=== PATIENT | male | born 1990 | race American Indian/Alaskan Native ===

== ENCOUNTER 2021-02-02 06:14 | Emergency (ER) | payer SELFPAY ==
[2021-02-02 06:21] VITALS: BP 127/83
[2021-02-02 08:10] LABS: Basophils % (Auto) 0.4 % (0.0-1.8); Eosinophils # (Auto) 0.2 K/mm3 (0.0-0.4); Eosinophils % (Auto) 2.4 % (0.0-4.3); Hemoglobin 14.5 gm/dl (11.8-15.2); Lymphocytes # (Auto) 1.9 K/mm3 (1.2-5.4); Lymphocytes % (Auto) 27.9 % (13.4-35.0); Mean Corpuscular HGB Conc 33 % (32-34); Mean Corpuscular Volume 87 fl (84-94); Monocytes # (Auto) 0.6 K/mm3 (0.0-0.8); Monocytes % (Auto) 8.6 % (0.0-7.3); Platelet Count 254 K/mm3 (140-440); Red Blood Count 5.04 M/mm3 (3.65-5.03)
[2021-02-02 08:33] LABS: BUN/Creatinine Ratio 21; Blood Urea Nitrogen 19 mg/dL (9-20); Calcium 9.4 mg/dL (8.4-10.2); Hemolysis Index 43
--- NOTE | 2021-02-02 08:43 | Emergency Department Report ---
ED Back Pain/Injury HPI - General Chief Complaint: Chest Pain Stated Complaint: CHEST PAIN/MOSTLY LT SIDE Time Seen by Provider: 02/02/21 08:15 Source: patient Limitations: No Limitations - History of Present Illness Initial Comments: Patient is a 30-year-old -[place] male that comes to the emergency room complaining of left and right sided chest pain for over 1 month. He states that it started when he overstretched 1 night he has had persistent pain since. The pain is worse with movement. Patient does lift a lot for work with seems to exaggerate the pain. Patient is otherwise healthy and in no acute distress. He is requesting a work note. The work-up as ordered by the overnight staff is noted. -: Gradual, days(s) Similar Symptoms Previously: Yes Place: home, work Radiation: none Severity: mild Quality: aching Consistency: intermittent Improves With: immobilization Worsens With: movement Context: while lifting, turning/twisting, bending Associated Symptoms: denies other symptoms - Related Data Previous Rx's Medication Instructions Recorded Last Taken Type Cyclobenzaprine [Flexeril] 10 mg PO TID PRN #10 tablet 02/02/21 Unknown Rx Ibuprofen [Motrin] 800 mg PO Q8HR PRN #30 tablet 02/02/21 Unknown Rx predniSONE [Deltasone] 20 mg PO DAILY #5 tablet 02/02/21 Unknown Rx Allergies Allergy/AdvReac Type Severity Reaction Status Date / Time shellfish derived Allergy Swelling Verified 02/02/21 06:18 ED Review of Systems ROS: Stated complaint: CHEST PAIN/MOSTLY LT SIDE Other details as noted in HPI Comment: All other systems reviewed and negative ED Past Medical Hx - Past Medical History Previous Medical History?: No - Surgical History Past Surgical History?: Yes Additional Surgical History: nose - Family History Family history: no significant - Social History Smoking Status: Former Smoker Substance Use Type: None - Medications Home Medications: Home Medications Medication Instructions Recorded Confirmed Last Taken Type Cyclobenzaprine [Flexeril] 10 mg PO TID PRN #10 tablet 02/02/21 Unknown Rx Ibuprofen [Motrin] 800 mg PO Q8HR PRN #30 tablet 02/02/21 Unknown Rx predniSONE [Deltasone] 20 mg PO DAILY #5 tablet 02/02/21 Unknown Rx ED Physical Exam - General Limitations: No Limitations General appearance: alert, in no apparent distress - Head Head exam: Present: atraumatic, normocephalic - Eye Eye exam: Present: normal appearance - ENT ENT exam: Present: mucous membranes moist - Neck Neck exam: Present: normal inspection - Respiratory Respiratory exam: Present: normal lung sounds bilaterally. Absent: respiratory distress - Cardiovascular Cardiovascular Exam: Present: regular rate, normal rhythm. Absent: systolic murmur, diastolic murmur, rubs, gallop - GI/Abdominal GI/Abdominal exam: Present: soft, normal bowel sounds - Rectal Rectal exam: Present: deferred - Extremities Exam Extremities exam: Present: normal inspection - Back Exam Back exam: Present: normal inspection - Neurological Exam Neurological exam: Present: alert, oriented X3 - Psychiatric Psychiatric exam: Present: normal affect, normal mood - Skin Skin exam: Present: warm, dry, intact, normal color. Absent: rash ED Course Vital Signs 02/02/21 06:18 Temperature 97.8 F Pulse Rate 94 H Respiratory 16 Rate Blood Pressure 127/83 O2 Sat by Pulse 97 Oximetry ED Medical Decision Making - Lab Data Result diagrams: 02/02/21 07:18 02/02/21 07:18 - EKG Data -: EKG Interpreted by [place] EKG shows normal: sinus rhythm Rate: normal - EKG Data When compared to previous EKG there are: no significant change Interpretation: no acute changes - Medical Decision Making Lab Results 02/02/21 02/02/21 Range/Units 07:18 07:18 WBC 6.8 (4.5-11.0) K/mm3 RBC 5.04 H (3.65-5.03) M/mm3 Hgb 14.5 (11.8-15.2) gm/dl Hct 44.0 (35.5-45.6) % MCV 87 (84-94) fl MCH 29 (28-32) pg MCHC 33 (32-34) % RDW 14.0 (13.2-15.2) % Plt Count 254 (140-440) K/mm3 Lymph % (Auto) 27.9 (13.4-35.0) % [place] % (Auto) 8.6 H (0.0-7.3) % Eos % (Auto) 2.4 (0.0-4.3) % Baso % (Auto) 0.4 (0.0-1.8) % Lymph # (Auto) 1.9 (1.2-5.4) K/mm3 [place] # (Auto) 0.6 (0.0-0.8) K/mm3 Eos # (Auto) 0.2 (0.0-0.4) K/mm3 Baso # (Auto) 0.0 (0.0-0.1) K/mm3 Seg Neutrophils % 60.7 (40.0-70.0) % Seg Neutrophils # 4.1 (1.8-7.7) K/mm3 Sodium 140 (137-145) mmol/L Potassium 4.5 (3.6-5.0) mmol/L Chloride 103.8 (98-107) mmol/L Carbon Dioxide 25 (22-30) mmol/L Anion Gap 16 mmol/L BUN 19 (9-20) mg/dL Creatinine 0.9 (0.8-1.3) mg/dL Estimated GFR > 60 ml/min BUN/Creatinine Ratio 21 % Glucose 76 (75-100) mg/dL Calcium 9.4 (8.4-10.2) mg/dL Vital Signs 02/02/21 06:18 Temperature 97.8 F Pulse Rate 94 H Respiratory 16 Rate Blood Pressure 127/83 O2 Sat by Pulse 97 Oximetry Twelve-lead EKG noted to be normal. Labs normal. Vital signs normal. Able to replicate the pain with movement. Patient discharged home with discharge plan of care including Flexeril for muscle spasm. Patient verbalizes understanding of discharge plan of care inc luding follow-up. - Differential Diagnosis musculoskeletal pain Critical care attestation.: If time is entered above; I have spent that time in minutes in the direct care of this critically ill patient, excluding procedure time. ED Disposition Clinical Impression: Musculoskeletal pain Disposition: DC-01 TO HOME OR SELFCARE Is pt being admited?: No Does the pt Need Aspirin: No Condition: Stable Instructions: Acute Back Pain, Adult Additional Instructions: MEDS ORDERED TODAY FOLLOW UP WITH PCP NEXT WEEK TO BE SURE YOU ARE GETTING BETTER WARM COMPRESSES Prescriptions: predniSONE [Deltasone] 20 mg PO DAILY #5 tablet Cyclobenzaprine [Flexeril] 10 mg PO TID PRN #10 tablet PRN Reason: Muscle Spasm Ibuprofen [Motrin] 800 mg PO Q8HR PRN #30 tablet PRN Reason: Pain, Moderate (4-6) Referrals: JEFE WOODARD MD [Staff Physician] - 3-5 Days Forms: Work/School Release Form(ED) Time of Disposition: 08:42
--- NOTE | 2021-02-03 17:39 | Electrocardiograph Report ---
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
== END 2021-02-02 08:52 | disposition home or self-care (01) ==
LOC: ED 06:14
DX: R07.89 Other chest pain (principal); M79.10 Myalgia, unspecified site; Z79.899 Other long term (current) drug therapy
CPT/HCPCS: 36415; 80048; 85025; 93005; 99283

== ENCOUNTER 2021-03-02 08:25 | Emergency (ER) | payer SELFPAY ==
[2021-03-02 08:37] VITALS: BP 120/67
[2021-03-02] MEDS ORDERED: CYCLOBENZAPRINE 10 MG TAB PO ONE (09:04)
[2021-03-02] MEDS ORDERED: methylPREDNISolone ACETATE 80 MG/1 ML INJ IM ONE (09:04)
--- NOTE | 2021-03-02 09:04 | Emergency Department Report ---
ED Back Pain/Injury HPI - General Chief Complaint: Back Pain/Injury Stated Complaint: BACK PAIN Time Seen by Provider: 03/02/21 09:02 Source: patient Limitations: No Limitations - History of Present Illness Initial Comments: 21 yo AA male comes to ER with lumbar back pain p throwing metal at work. No fall or trauma. No urinary/bowel complaints. Ambulatory with no difficulty. Pain is constant achy feeling which is worse with movement Ambulatory to ER MD Complaint: back pain -: Gradual, days(s) Similar Symptoms Previously: Yes Place: work Radiation: none Severity: mild Consistency: constant Improves With: immobilization Worsens With: movement Context: while lifting Associated Symptoms: denies other symptoms - Related Data Previous Rx's Medication Instructions Recorded Last Taken Type Cyclobenzaprine [Flexeril] 10 mg PO TID PRN #10 tablet 03/02/21 Unknown Rx Ibuprofen [Motrin] 800 mg PO Q8HR PRN #30 tablet 03/02/21 Unknown Rx predniSONE [Deltasone] 20 mg PO DAILY #5 tablet 03/02/21 Unknown Rx Allergies Allergy/AdvReac Type Severity Reaction Status Date / Time shellfish derived Allergy Swelling Verified 03/02/21 08:56 ED Review of Systems ROS: Stated complaint: BACK PAIN Other details as noted in HPI Comment: All other systems reviewed and negative ED Past Medical Hx - Past Medical History Previous Medical History?: Yes Hx Asthma: Yes - Surgical History Past Surgical History?: Yes Additional Surgical History: nose - Family History Family history: no significant - Social History Smoking Status: Never Smoker Substance Use Type: None - Medications Home Medications: Home Medications Medication Instructions Recorded Confirmed Last Taken Type Cyclobenzaprine [Flexeril] 10 mg PO TID PRN #10 tablet 03/02/21 Unknown Rx Ibuprofen [Motrin] 800 mg PO Q8HR PRN #30 tablet 03/02/21 Unknown Rx predniSONE [Deltasone] 20 mg PO DAILY #5 tablet 03/02/21 Unknown Rx ED Physical Exam - General Limitations: No Limitations General appearance: alert, in no apparent distress - Head Head exam: Present: atraumatic, normocephalic - Eye Eye exam: Present: normal appearance - ENT ENT exam: Present: mucous membranes moist - Neck Neck exam: Present: normal inspection - Respiratory Respiratory exam: Present: normal lung sounds bilaterally. Absent: respiratory distress - Cardiovascular Cardiovascular Exam: Present: regular rate, normal rhythm. Absent: systolic murmur, diastolic murmur, rubs, gallop - GI/Abdominal GI/Abdominal exam: Present: soft, normal bowel sounds - Rectal Rectal exam: Present: deferred - Extremities Exam Extremities exam: Present: normal inspection - Back Exam Back exam: Present: normal inspection, muscle spasm - Expanded Back Exam Expanded Back exam: Present: intact bulbocavernosus reflex, normal rectal tone. Absent: saddle anesthesia, decreased rectal tone Back exam: Positive Straight Leg Raise: Right - Neurological Exam Neurological exam: Present: alert, oriented X3 - Psychiatric Psychiatric exam: Present: normal affect, normal mood - Skin Skin exam: Present: warm, dry, intact, normal color. Absent: rash ED Course Vital Signs 03/02/21 08:36 Temperature 98.8 F Pulse Rate 89 Respiratory 18 Rate Blood Pressure 120/67 O2 Sat by Pulse 99 Oximetry ED Medical Decision Making - Medical Decision Making muscle spasm on exam left lumbar pos straight leg raise right lumbar area ambulatory no s/s cauda equina no spine tenderness medicated with flexeril and depomedrol dc home with dc plan of care and pcp follow up.. pt verbalizes understanding of dc plan of care Vital Signs 03/02/21 08:36 Temperature 98.8 F Pulse Rate 89 Respiratory 18 Rate Blood Pressure 120/67 O2 Sat by Pulse 99 Oximetry - Differential Diagnosis soft tissue injury Critical care attestation.: If time is entered above; I have spent that time in minutes in the direct care of this critically ill patient, excluding procedure time. ED Disposition Clinical Impression: Back spasm, Sciatica Disposition: DC-01 TO HOME OR SELFCARE Is pt being admited?: No Does the pt Need Aspirin: No Condition: Stable Instructions: Muscle Cramps and Spasms, [id number] Additional Instructions: warm baths meds as ordered today follow up with pcp in 48 hours for recheck referral below Prescriptions: predniSONE [Deltasone] 20 mg PO DAILY #5 tablet Cyclobenzaprine [Flexeril] 10 mg PO TID PRN #10 tablet PRN Reason: Muscle Spasm Ibuprofen [Motrin] 800 mg PO Q8HR PRN #30 tablet PRN Reason: Pain, Moderate (4-6) Referrals: JEFE WOODARD MD [Staff Physician] - 3-5 Days Forms: Work/School Release Form(ED) Time of Disposition: :04
== END 2021-03-02 09:26 | disposition home or self-care (01) ==
LOC: ED 08:25
DX: M62.830 Muscle spasm of back (principal); M54.41 Lumbago with sciatica, right side; J45.909 Unspecified asthma, uncomplicated; Z79.899 Other long term (current) drug therapy; Z91.013 Allergy to seafood
CPT/HCPCS: 96372; 99282; J1040

== ENCOUNTER 2021-03-27 21:49 | Emergency (ER) | payer SELFPAY | END 2021-03-28 00:20 | disposition left against medical advice (07) | LOC: ED 21:49 ==